=== PATIENT | male | born 1965 | race Caucasian/White ===

== ENCOUNTER → 2018-06-19 | Outpatient (CLI) | payer BC, OTHER ==
[~2018-06-19] VITALS: Ht 182.9 cm; Wt 150.1 kg
[~2018-06-19] MED LIST: BYSTOLIC 5 MG5 M1; HYDROCHLOROTH12.5 M1 PO; LISINOPRIL40 MG
[2018-06-19 08:27] VITALS: BP 142/86
--- NOTE | 2018-06-20 12:28 | CATHLAB ---
[facility] [address] [place] [address] INVASIVE PROCEDURE REPORT Name: STEWSTARLA Catia Room #: REG Frankie#: [id number] Admission: 06/19/18 Attend Phys: Priyank Willis Discharge: Date of : 67 Date of Service: 06/20/18 1228 Report #: [id number] THIS REPORT FOR: //name// APPROVED REPORT Study performed: 06/19/2018 07:27:42 Patient Details Patient Status: Out-Patient Room #: The patient is a 53 year-old male Event Personnel Priyank Jimenez Warrant Clerk, Dimitri Wisdom RN RN, Bernadette Berman, Rush Beard Monitor Procedures Performed Left Heart Cath w/or w/o Coronaries [id number] [facility], supervision of conscious sedation Indication Positive stress test, Chest pain Procedure Narrative The Right Groin^ was infiltrated with 1% Lidocaine subcutaneous anesthesia. A PINNACLE 4FR Sheath #[id number] sheath was inserted into the RFA^. Coronary angiography was performed using coronary diagnostic catheters. The right coronary system was accessed and visualized with a JR4 catheter. The left coronary system was accessed and visualized with a 4FR JL 5.0 #[id number] catheter. The left ventricle was accessed and visualized with a PIGTAIL catheter. Left ventricular/Aortic Valve gradient assessed via catheter pullback. Hemostasis was obtained with manual pressure following sheath removal without any complications. There was no hematoma. Intraoperative Conscious Sedation Sedation start time: 9.42 Case end Time: 10.08 Versed 2 mg Fluoro Time: 3.30 minutes Dose: DAP 6590 cGycm2 864 mGy Contrast Type and Amount: Omnipaque 60 ml Coronary Angiography The patient's coronary anatomy is right dominant. [facility] [address] [place] [address] INVASIVE PROCEDURE REPORT Name: STARLA MATHIAS Room #: [facility]#: [id number] Admission: 06/19/18 Attend Phys: Priyank Willis Discharge: Date of : 67 Date of Service: 06/20/18 1228 Report #: [id number] Diagnostic Cath Left Main Normal origin and caliber long in length without significant stenosis noted. It bifurcates into left anterior descending left circumflex free of high-grade disease LAD Small-caliber vessel type I structure. Proximally there is mild irregularity of the lumen as it courses in the anterior interventricular sulcus. It then rapidly tapers in the mid to distal portion terminating prior to reaching the high-grade lesions are noted Diagonal 1 Multiple vessel which courses in the anterolateral aspect of the left ventricle tapering rapidly is free of high-grade disease although it is tortuous in its course. Diagonal 2 All insignificant caliber vessel Circumflex Moderate caliber vessel coursing in the AV groove giving rise to an moderate caliber on the lateral aspect of the heart. His course with only luminal irregularities noted no significant high-grade lesions are present Marginal branch vessel then terminates in the posterior wall is a small-caliber vessel OM1 Her caliber bifurcating vessel coursing on the lateral aspect of left ventricle with luminal irregularities at present in the mid and distal portion. It is tortuous in its course but no obstructive lesions are present Right Coronary Moderate caliber vessel normal origin proceeds in the AV groove R PDA Moderate caliber vessel which bifurcates in its distal third into 2 branches of which are free of high-grade disease Left Ventriculography Left Ventriculography was not performed. Hemodynamics The aortic pressure is 115/67 mmHg with a mean of 68 mmHg. The left ventricular pressure is 117/11 mmHg with a mean of mmHg. The left ventricular end diastolic pressure is 22 mmHg. There was no gradient across the aortic valve upon pullback. Pullback from the left ventricle to the aorta revealed no gradient across the aortic valve. Conclusion [facility] [address] [place] [address] INVASIVE PROCEDURE REPORT Name: MATHIASSTARLA Room #: REG [facility]#: [id number] Admission: 06/19/18 Attend Phys: Priyank Willis Discharge: Date of : 67 Date of Service: 06/20/18 1228 Report #: [id number] 1. Mild nonobstructive CAD 2. Abnormal Hemodynamics with mildly elevated EDP <ELECTRONICALLY SIGNED> By: Priyank Jimenez MD 06/20/18 1228 1228 Priyank Jimenez MD /INF
== END | disposition home or self-care (01) ==
LOC: CATH 07:52
DX: I25.10 Atherosclerotic heart disease of native coronary artery without angina pectoris (principal); I10 Essential (primary) hypertension; F17.210 Nicotine dependence, cigarettes, uncomplicated; E66.01 Morbid (severe) obesity due to excess calories; Z98.890 Other specified postprocedural states; Z82.49 Family history of ischemic heart disease and other diseases of the circulatory system